=== PATIENT | female | born 1985 | race Hispanic/Latino ===

== ENCOUNTER 2016-10-03 20:56 | Emergency (ER) | payer OTHER ==
[2016-10-03 21:11] VITALS: BP 127/87
[2016-10-03 21:53] LABS: Hematocrit 34.8 % (30.3-42.9); Hemoglobin 11.8 gm/dl (10.1-14.3); Mean Corpuscular HGB Conc 34 % (30-34); Mean Corpuscular Hemoglobin 32 pg (28-32); Mean Corpuscular Volume 93 fl (79-97); Platelet Count 258 K/mm3 (140-440); Red Blood Count 3.74 M/mm3 (3.65-5.03); Red Cell Distribution Width 13.3 % (13.2-15.2); White Blood Count 12.2 K/mm3 (4.5-11.0)
[2016-10-03 22:03] LABS: Alanine Aminotransferase 8 units/L (7-56); Albumin 4.1 g/dL (3.9-5); Albumin/Globulin Ratio 1.5 %; Alkaline Phosphatase 64 units/L (35-129); Blood Urea Nitrogen 4 mg/dL (7-17); Calcium 9.1 mg/dL (8.4-10.2); Carbon Dioxide 22 mmol/L (22-30); Glucose 89 mg/dL (65-100); Lipase 18 units/L (13-60); Total Protein 6.9 g/dL (6.3-8.2)
[2016-10-03 22:04] LABS: Anion Gap 18 mmol/L; Chloride 100.3 mmol/L (98-107); Potassium 3.5 mmol/L (3.6-5.0); Sodium 137 mmol/L (137-145)
[2016-10-03 22:19] LABS: Bilirubin,Urine NEG (Negative); Blood,Urine NEG (Negative); Ketones,Urine 20 mg/dL (Negative); Leukocyte Esterase,Urine NEG (Negative); Mucus,Urine 3+ /HPF; Nitrite,Urine NEG (Negative)
[2016-10-03 22:40] LABS: Blastocytes % (Manual) 0 %
[2016-10-03 22:41] LABS: Diff Status Complete; Platelet Estimate Consistent w Auto; RBC Morphology Normal
--- NOTE | 2016-10-03 22:57 | Ultrasound Report ---
FINAL REPORT EXAM: US OB \T\gt; = 14 WEEKS FETUS HISTORY: PREG / ABD PAIN / VAG BLEEDING TECHNIQUE: Ultrasound obstetrical transabdominal PRIORS: None. FINDINGS: Single live intrauterine gestation present cardiac activity is present with heart rate of 168 beats per minute Cervical length 3.4 centimeters Placenta is posterior and grade 0 Presentation is breech biometric measurements were obtained Biparietal diameter 18 weeks 1 day Head circumference 18 weeks 3 days Abdominal circumference 19 weeks 2 days Femur length 18 weeks 4 days based on today's exam estimated gestational age is 18 weeks 4 days with estimated date of delivery January 30, 2018 Estimated weight today is 262 grams IMPRESSION: Single live intrauterine gestation estimated at 18 weeks 4 days
--- NOTE | 2016-10-04 04:47 | Emergency Department Report ---
ED Abdominal Pain HPI - General Chief Complaint: Abdominal Pain Stated Complaint: , ABD PAIN Time Seen by Provider: 10/04/16 04:39 Source: patient Mode of arrival: Ambulatory Limitations: No Limitations - History of Present Illness Initial Comments: 31 years old female. 18 weeks complaining of lower abdominal pain and vaginal bleeding since yesterday. She stated that her abdominal pain is gone now also the bleeding. Denied any urinary symptoms no nausea no vomiting no fever no diarrhea. MD Complaint: abdominal pain Location: suprapubic Radiation: none Migration to: no migration Quality: cramping Consistency: intermittent, now resolved Improves With: nothing Worsens With: nothing Associated Symptoms: denies other symptoms - Related Data Allergies Allergy/AdvReac Type Severity Reaction Status Date / Time No Known Allergies Allergy Verified 10/03/16 21:03 ED Review of Systems ROS: Stated complaint: , ABD PAIN Other details as noted in HPI Comment: All other systems reviewed and negative Constitutional: denies: chills, fever Respiratory: denies: cough, shortness of breath Cardiovascular: denies: chest pain, palpitations Gastrointestinal: abdominal pain. denies: nausea, vomiting, diarrhea, constipation, hematemesis, melena Genitourinary: denies: urgency, dysuria, frequency, discharge ED Past Medical Hx - Past Medical History Previous Medical History?: No - Surgical History Past Surgical History?: No - Social History Smoking Status: Current Every Day Smoker Substance Use Type: Alcohol, Other ED Physical Exam - General Limitations: No Limitations General appearance: alert, in no apparent distress - Head Head exam: Present: normocephalic - Eye Eye exam: Present: normal appearance - ENT ENT exam: Present: normal exam - Neck Neck exam: Present: normal inspection - Respiratory Respiratory exam: Present: normal lung sounds bilaterally - Cardiovascular Cardiovascular Exam: Present: regular rate, normal rhythm, normal heart sounds - GI/Abdominal GI/Abdominal exam: Present: soft, normal bowel sounds, other (gravid uterus). Absent: distended, tenderness, guarding, rebound, rigid, mass, bruit, pulsatile mass, hernia ED Course Vital Signs 10/03/16 10/04/16 21:03 01:16 Temperature 97.9 F Pulse Rate 101 H Respiratory 18 Rate Blood Pressure 127/87 O2 Sat by Pulse 100 98 Oximetry - Reevaluation(s) Reevaluation #1: 10/04/16 04:47 Patient is sleeping in the room when I walk in for exam easily arousable no acute distress stated that her abdominal pain is completely gone ED Medical Decision Making - Lab Data Result diagrams: 10/03/16 21:25 10/03/16 21:25 Critical care attestation.: If time is entered above; I have spent that time in minutes in the direct care of this critically ill patient, excluding procedure time. ED Disposition Clinical Impression: Abdominal pain affecting Disposition: DC-01 TO HOME OR SELFCARE Is pt being admited?: No Condition: Stable Instructions: Abdominal Pain (ED), Abdominal Pain in (ED) Referrals: PRIMARY CARE, [Primary Care Provider] - 3-5 Days
== END 2016-10-04 04:54 | disposition home or self-care (01) ==
LOC: ED 20:56
DX: O26.892 Other specified pregnancy related conditions, second trimester (principal); R10.30 Lower abdominal pain, unspecified; F17.200 Nicotine dependence, unspecified, uncomplicated; Z3A.18 18 weeks gestation of pregnancy
CPT/HCPCS: 36415; 76805; 80053; 81001; 83690; 84702; 85007; 85025